=== PATIENT | female | born 1995 | race African-American/Black ===

== ENCOUNTER 2017-02-07 07:12 | Emergency (ER) | payer MEDICAID, SELFPAY ==
[2017-02-07] MEDS ORDERED: Ketorolac Tromethamine 30 MG/ML VIAL ONE (07:30)
--- NOTE | 2017-02-07 07:56 | RAD ---
RIGHT KNEE 4 VIEWS: Date: 02/07/17 HISTORY: Injury, right knee pain. FINDINGS/IMPRESSION: No acute fracture or dislocation is identified. POS: [facility]
== END 2017-02-07 08:44 | disposition home or self-care (01) ==
LOC: ERS 07:12
DX: S83.511A Sprain of anterior cruciate ligament of right knee, initial encounter (principal); F90.9 Attention-deficit hyperactivity disorder, unspecified type; X50.9XXA Other and unspecified overexertion or strenuous movements or postures, initial encounter
CPT/HCPCS: 96372; J1885

== ENCOUNTER 2017-05-05 16:13 | Emergency (ER) | payer SELFPAY ==
[2017-05-05 16:51] LABS: Bilirubin Negative (Negative); Blood, Urine Negative (Negative); Clarity CLEAR (Clear); Glucose, Urine (Dipstick) Negative (Negative); Leukocyte Negative (Negative); Nitrite Negative (Negative); Protein, Urine (Dipstick) Negative (Neg-Trace); Specific Gravity, Urine 1.009 (1.002-1.036)
[2017-05-05 16:53] LABS: Pregnancy Test - Urine (BHCG) Negative (Negative); Pregu Control Background? CLEAR/WHITE (CLR/WHITE); Pregu Control Bar Appear? YES (CONTROL BAR); Specific Gravity 1.009 (1.002-1.036)
== END 2017-05-05 19:33 | disposition left against medical advice (07) ==
LOC: ERS 16:13
DX: O99.89 Other specified diseases and conditions complicating pregnancy, childbirth and the puerperium (principal); R51 Headache; O99.342 Other mental disorders complicating pregnancy, second trimester; F90.9 Attention-deficit hyperactivity disorder, unspecified type; Z3A.14 14 weeks gestation of pregnancy
CPT/HCPCS: 81003; 81025; 99284

== ENCOUNTER 2017-10-07 14:28 | Emergency (ER) | payer SELFPAY ==
[2017-10-07 15:06] LABS: #Basophils 0.1 thou/uL (0.0-0.2); #Eosinphils 0.1 thou/uL (0.0-0.7); #Lymphocytes 2.7 thou/uL (1.20-3.40); #Monocytes 0.4 thou/uL (0.11-0.59); #Neutrophils 5.8 thou/uL (1.40-6.50); %Monocytes 4.6 % (0.0-4.0); %Neutrophils 63.4 % (31.0-61.0); Hemoglobin 11.7 g/dL (12.0-16.0); Mean Corpuscular HGB CONC 34.7 g/dL (32.0-36.0); Mean Corpuscular Hemoglobin 27.9 pg (25.0-35.0); Mean Corpuscular Volume 80.4 fL (78.0-98.0); Platelet Count 465 thou/uL (130-400); RBC Distribution Width 14.5 % (11.5-14.5); White Blood Cell (WBC) Count 9.1 thou/uL (4.8-10.8)
[2017-10-07 15:22] LABS: Bilirubin Small (Negative); Clarity CLEAR (Clear); Glucose, Urine (Dipstick) Negative (Negative); Leukocyte Small (Negative); Nitrite Negative (Negative); Protein, Urine (Dipstick) Trace mg/dL (Neg-Trace); Specific Gravity, Urine 1.028 (1.002-1.036)
[2017-10-07 15:23] LABS: Pregnancy Test - Urine (BHCG) Negative (Negative); Pregu Control Background? CLEAR/WHITE (CLR/WHITE); Pregu Control Bar Appear? YES (CONTROL BAR); Specific Gravity 1.028 (1.002-1.036)
[2017-10-07 15:24] LABS: Bacteria/HPF Rare-Few HPF (None Seen); Hyaline Casts/LPF 4-6 HYALINE CAST LPF (0-3 Hyaline); Pathc Cast-AUWi Flag 0.87 (0-2.49)
[2017-10-07 15:25] LABS: Yeast-AUWi Flag 40.9 (0-25.0)
[2017-10-07 15:26] LABS: ALT (SGPT) 12 U/L (8-55); AST (SGOT) 17 U/L (5-34); Albumin 4.2 g/dL (3.5-5.0); Alkaline Phosphatase 102 U/L (40-150); Anion Gap 10 mmol/L (10-20); BUN (Urea Nitrogen) 9 mg/dL (7.0-18.7); Bilirubin, Total 0.7 mg/dL (0.2-1.2); Calc. Creatinine Clearance 0 mL/min (70-130); Calcium 9.6 mg/dL (7.8-10.44); Carbon Dioxide 27 mmol/L (22-29); Chloride 106 mmol/L (98-107); Estimated GFR-MDRD 84; Globulin 3.4 g/dL (2.4-3.5); Glucose 78 mg/dL (70-105); Potassium 3.9 mmol/L (3.5-5.1); Protein, Total 7.6 g/dL (6.0-8.3); Sodium 139 mmol/L (136-145)
[2017-10-07 15:29] LABS: Blood, Urine Small (Negative)
[2017-10-07 15:30] LABS: Yeast-All Forms None Seen HPF (None Seen)
[2017-10-08 23:43] LABS: Chlamydia by PCR Not Detected (NotDetected); GC by PCR Not Detected (NotDetected)
== END 2017-10-07 16:35 | disposition home or self-care (01) ==
LOC: ERS 14:28
DX: N93.8 Other specified abnormal uterine and vaginal bleeding (principal); F90.9 Attention-deficit hyperactivity disorder, unspecified type
CPT/HCPCS: 36415; 80053; 81003; 81015; 81025; 85025; 86850; 86900; 86901; 87086; 87480; 87491; 87510; 87591; 87660; 99284

== ENCOUNTER 2017-12-16 06:36 | Emergency (ER) | payer SELFPAY ==
[2017-12-16 07:24] LABS: Bilirubin Negative (Negative); Blood, Urine Large (Negative); Clarity CLEAR (Clear); Glucose, Urine (Dipstick) Negative (Negative); Leukocyte Negative (Negative); Nitrite Negative (Negative); Protein, Urine (Dipstick) Trace mg/dL (Neg-Trace); Specific Gravity, Urine 1.024 (1.002-1.036)
[2017-12-16 07:26] LABS: Bacteria/HPF None Seen HPF (None Seen); Hyaline Casts/LPF 4-6 HYALINE CAST LPF (0-3 Hyaline); Pathc Cast-AUWi Flag 1.01 (0-2.49); RBC/HPF GREATER THAN 50-TNTC HPF (0-3); WBC/HPF 0-3 HPF (0-3)
[2017-12-16 07:32] LABS: Pregnancy Test - Urine (BHCG) Negative (Negative); Pregu Control Background? CLEAR/WHITE (CLR/WHITE); Pregu Control Bar Appear? YES (CONTROL BAR); Specific Gravity 1.024 (1.002-1.036)
[2017-12-16 07:38] LABS: #Basophils 0.1 thou/uL (0.0-0.2); #Eosinphils 0.1 thou/uL (0.0-0.7); #Lymphocytes 2.6 thou/uL (1.20-3.40); #Monocytes 0.5 thou/uL (0.11-0.59); #Neutrophils 3.8 thou/uL (1.40-6.50); %Basophils 1.1 % (0.0-1.0); %Eosinophils 1.9 % (0.0-10.0); %Lymphocytes 36.5 % (28.0-48.0); %Neutrophils 53.5 % (31.0-61.0); Hemoglobin 10.3 g/dL (12.0-16.0); Mean Corpuscular HGB CONC 34.4 g/dL (32.0-36.0); Mean Corpuscular Hemoglobin 25.7 pg (25.0-35.0); Mean Corpuscular Volume 74.9 fL (78.0-98.0); Mean Platelet Volume 7.7 fL (7.4-10.4); Platelet Count 469 thou/uL (130-400); RBC Distribution Width 15.9 % (11.5-14.5); Red Blood Cell (RBC) Count 4.01 mill/uL (4.00-5.20); White Blood Cell (WBC) Count 7.1 thou/uL (4.8-10.8)
--- NOTE | 2017-12-16 09:21 | ULT ---
PELVIC ULTRASOUND: HISTORY: Dysmenorrhagia. COMPARISON: None. TECHNIQUE: Transabdominal and endovaginal imaging of the pelvis is performed. Ovaries are interrogated with gra y scale, color flow, Doppler imaging, and spectral waveform analysis. FINDINGS: A uterus is identified, without myometrial masses. The uterus measures 4.2 x 4.3 x 7.7 cm. Endometr ial diameter is 0.7 cm. There is free fluid in the pelvis. Anechoic foci in the right and left ovary measuring 1.9 and 1.1 cm in maximum dimension respectively. Follicles are favored. Overall, the right ovary measures 5.1 x 2.1 x 2.6 cm. The left ovary measur es 4.4 x 2.1 x 1.9 cm. OVARIAN DOPPLER: Vascular flow to both ovaries. IMPRESSION: 1. Nonspecific fluid in the pelvis. 2. Probable bilateral ovarian follicles. 3. Vascular flow to both ovaries. 4. Homogeneous endometrium with a diameter of 0.7 cm. POS: [facility]
[2017-12-16 17:12] LABS: Chlamydia by PCR Not Detected (NotDetected); GC by PCR Not Detected (NotDetected)
== END 2017-12-16 10:51 | disposition home or self-care (01) ==
LOC: ERS 06:36
DX: N93.9 Abnormal uterine and vaginal bleeding, unspecified (principal); D64.9 Anemia, unspecified; F90.9 Attention-deficit hyperactivity disorder, unspecified type; F17.210 Nicotine dependence, cigarettes, uncomplicated
CPT/HCPCS: 36415; 76856; 81003; 81015; 81025; 85025; 87480; 87491; 87510; 87591; 87660; 99406

== ENCOUNTER 2018-06-14 15:37 | Emergency (ER) | payer SELFPAY | END 2018-06-14 18:03 | disposition home or self-care (01) | LOC: ERS 15:37 | DX: J06.9 Acute upper respiratory infection, unspecified (principal); F17.210 Nicotine dependence, cigarettes, uncomplicated; F90.9 Attention-deficit hyperactivity disorder, unspecified type; Z71.6 Tobacco abuse counseling | CPT/HCPCS: 99406 ==

== ENCOUNTER 2019-09-28 09:34 | Emergency (ER) | payer SELFPAY ==
[2019-09-28 10:57] LABS: #Basophils 0.1 thou/uL (0.0-0.2); #Eosinphils 0.1 thou/uL (0.0-0.7); #Lymphocytes 2.5 thou/uL (1.20-3.40); #Monocytes 0.6 thou/uL (0.11-0.59); #Neutrophils 4.8 thou/uL (1.40-6.50); %Basophils 1.1 % (0.0-1.0); %Eosinophils 1.7 % (0.0-10.0); %Neutrophils 59.2 % (42.0-75.0); Hemoglobin 12.2 g/dL (12.0-16.0); Mean Corpuscular HGB CONC 33.7 g/dL (32.0-36.0); Mean Corpuscular Hemoglobin 26.1 pg (27.0-31.0); Mean Corpuscular Volume 77.7 fL (78.0-98.0); Mean Platelet Volume 7.3 fL (7.4-10.4); Platelet Count 471 thou/uL (130-400); RBC Distribution Width 15.9 % (11.5-14.5); Red Blood Cell (RBC) Count 4.66 mill/uL (4.20-5.40)
[2019-09-28 10:59] LABS: Bacteria/HPF None Seen HPF (None Seen); Bilirubin Negative (Negative); Blood, Urine Negative (Negative); Clarity Clear (Clear); Glucose, Urine (Dipstick) Normal (Negative); Leukocyte 75 Leu/uL (Negative); Mucous/LPF 1+ LPF (<2+); Nitrite Negative (Negative); Protein, Urine (Dipstick) 30 mg/dL (Neg-Trace); Urobilinogen 3 mg/dL (Less than 2)
[2019-09-28 11:04] LABS: Pregnancy Test - Urine (BHCG) Negative (Negative); Pregu Control Background? CLEAR/WHITE (CLR/WHITE); Pregu Control Bar Appear? YES (CONTROL BAR); Specific Gravity 1.036 (1.002-1.036)
[2019-09-28 11:11] LABS: Amphetamine Not Detected (NotDetected); Barbiturates Screen Not Detected (NotDetected); Benzodiazepine Screen Not Detected (NotDetected); Cocaine Metabolite Screen Not Detected (NotDetected); Medtox Control Line Valid? VALID (VALID); Medtox Reader # READER 1; Methadone Not Detected (NotDetected); Methamphetamine Not Detected (NotDetected); Opiate Screen Not Detected (NotDetected); Oxycodone Screen Not Detected (NotDetected); Phencyclidine (PCP) Not Detected (NotDetected); THC/Cannabinoid Screen Detected (NotDetected); Tricyclic Screen Not Detected (NotDetected)
[2019-09-28 11:20] LABS: Acetaminophen Less than 6.0 mcg/mL (10.0-30.0); Alcohol Less than 10 mg/dL (Less than 10); Salicylate Less than 8.0 mg/dL (15.0-30.0)
[2019-09-28 11:24] LABS: ALT (SGPT) 23 U/L (8-55); AST (SGOT) 23 U/L (5-34); Albumin 3.9 g/dL (3.5-5.0); Alcohol Less than 10 mg/dL (Less than 10); Alkaline Phosphatase 101 U/L (40-110); Anion Gap 9 mmol/L (10-20); BUN (Urea Nitrogen) 8 mg/dL (7.0-18.7); Bilirubin, Total 0.5 mg/dL (0.2-1.2); CK (CPK) 804 U/L (29-168); Calc. Creatinine Clearance 0 mL/min (70-130); Calcium 9.1 mg/dL (7.8-10.44); Carbon Dioxide 26 mmol/L (22-29); Chloride 106 mmol/L (98-107); Estimated GFR-MDRD Greater than 90; Globulin 3.6 g/dL (2.4-3.5); Glucose 77 mg/dL (70-105); Potassium 4.1 mmol/L (3.5-5.1); Protein, Total 7.5 g/dL (6.0-8.3); Sodium 137 mmol/L (136-145)
[2019-09-28] MEDS ORDERED: Lorazepam 2 MG/ML VIAL ONE (12:06)
[2019-09-28] MEDS ORDERED: Nitrofurantoin Monohyd/M-Cryst 100 MG CAP PO SCH (14:45)
--- NOTE | 2019-10-02 14:52 | EKG ---
Test Reason : Blood Pressure : / mmHG Vent. Rate : 071 BPM Atrial Rate : 071 BPM P-R Int : 170 ms QRS Dur : 082 ms QT Int : 390 ms P-R-T Axes : 012 019 002 degrees QTc Int : 423 ms Normal sinus rhythm Nonspecific T wave abnormality Abnormal ECG Confirmed by SERGE GUTIERREZ, MALLIKA ([id number]), graphic editor NE REID ([id number]) on 10/02/2019 2:51:44 PM Referred By: Confirmed By:MALLIKA VALENTINE MD
== END 2019-09-28 22:01 ==
LOC: ERS 09:34
DX: R45.851 Suicidal ideations (principal); N39.0 Urinary tract infection, site not specified; F90.9 Attention-deficit hyperactivity disorder, unspecified type; F41.9 Anxiety disorder, unspecified; F32.9 Major depressive disorder, single episode, unspecified; F17.210 Nicotine dependence, cigarettes, uncomplicated
CPT/HCPCS: 36415; 80053; 80306; 80307; 81003; 81015; 81025; 82550; 84443; 85025; 93005; 96374; J2060

== ENCOUNTER 2020-09-18 13:27 | Emergency (ER) | payer MEDICAID | END 2020-09-18 14:54 | disposition home or self-care (01) | LOC: ERS 13:27 | DX: H66.91 Otitis media, unspecified, right ear (principal); F17.210 Nicotine dependence, cigarettes, uncomplicated | CPT/HCPCS: 99282 ==